=== PATIENT | male | born 1960 | race American Indian/Alaskan Native ===

== ENCOUNTER 2017-10-28 14:22 | Emergency (ER) | payer MEDICAID, OTHER ==
[2017-10-28 14:33] VITALS: RESP 18; O2SAT 99
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
[2017-10-28 15:51] VITALS: BP 120/78; PULSE 78; TEMP 97
== END 2017-10-28 15:00 | disposition left against medical advice (07) ==
LOC: H.ER 14:22
DX: N50.819 Testicular pain, unspecified (principal)

== ENCOUNTER 2018-04-25 16:01 | Emergency (ER) | payer OTHER ==
[2018-04-25 16:29] VITALS: BP 103/58; PULSE 62; RESP 16; TEMP 98.2; O2SAT 98
--- NOTE | 2018-04-25 16:56 | ED PDOC ---
HPI: Skin/Bite Injury Time Seen by Provider: 04/25/18 16:31 Chief Complaint (Nursing): Abnormal Skin Integrity Chief Complaint (Provider): bumps on facial skin History Per: Patient History/Exam Limitations: no limitations Onset/Duration Of Symptoms: Days Current Symptoms Are (Timing): Still Present Additional Complaint(s): 57 yo male presents with 2 bumps on face. PT states it has been going on for 1 month without improvement. Pt states he has not applied ointment or warm compresses. PT states he comes today because he is unable to get his hair/face cut by [facility]. Pt denies pain. PT denies fever/chills Past Medical History Reviewed: Historical Data, Nursing Documentation, Vital Signs Vital Signs: Last Vital Signs Temp 98.2 F 04/25/18 16:26 Pulse 62 04/25/18 16:26 Resp 16 04/25/18 16:26 BP 103/58 L 04/25/18 16:26 Pulse Ox 98 04/25/18 16:26 - Medical History PMH: No Chronic Diseases - Surgical History Surgical History: No Surg Hx - Family History Family History: States: Unknown Family Hx - Living Arrangements Living Arrangements: With Family - Social History Current smoker - smoking cessation education provided: No - Home Medications Home Medications: Ambulatory Orders Medication Instructions Recorded Cyclobenzaprine [Cyclobenzaprine 10 mg PO TID PRN #15 tab 05/26/16 HCl] Ibuprofen [Motrin] 600 mg PO Q6 PRN #15 tab 05/26/16 Cyclobenzaprine [Cyclobenzaprine 10 mg PO TID #20 tab 08/10/16 HCl] Ibuprofen [Motrin] 600 mg PO Q6 #20 tab 08/10/16 oxyCODONE/Acetaminophen [Percocet 1 ea PO Q6 PRN #5 tab 08/10/16 5/325 mg Tab] Cyclobenzaprine [Cyclobenzaprine 10 mg PO Q8 #15 tab 08/11/16 HCl] Naproxen [Naprosyn] 500 mg PO BID #20 tablet 08/11/16 Doxycycline Monohydrate [Mondoxyne 100 mg PO BID #20 capsule 04/25/18 Nl] - Allergies Allergies/Adverse Reactions: Allergies Allergy/AdvReac Type Severity Reaction Status Date / Time No Known Allergies Allergy Verified 04/25/18 16:26 Review of Systems ROS Statement: Except As Marked, All Systems Reviewed And Found Negative Constitutional: Negative for: Fever, Chills Skin: Positive for: Other Physical Exam - Reviewed Nursing Documentation Reviewed: Yes Vital Signs Reviewed: Yes - Physical Exam Appears: Positive for: Well, Non-toxic, No Acute Distress Head Exam: Positive for: ATRAUMATIC, NORMAL INSPECTION, NORMOCEPHALIC Skin: Positive for: Warm. Negative for: Normal Color (flesh, color indurated area on cheeks, non-tender ) Eye Exam: Positive for: Normal appearance ENT: Positive for: Normal ENT Inspection Neck: Positive for: Normal Cardiovascular/Chest: Negative for: Bradycardia, Tachycardia Respiratory: Negative for: Accessory Muscle Use, Respiratory Distress Back: Positive for: Normal Inspection Extremity: Positive for: Normal ROM Neurologic/Psych: Positive for: Alert, Oriented - ECG O2 Sat by Pulse Oximetry: 98 Medical Decision Making Medical Decision Making: Discussed warm compresses. Disposition - Clinical Impression Clinical Impression: Abscess - Patient ED Disposition Is Patient to be Admitted: No Counseled Patient/Family Regarding: Diagnosis, Need For Followup, Rx Given - Disposition Disposition: Routine/Home Disposition Time: 16:54 Condition: GOOD Prescriptions: Doxycycline Monohydrate [Mondoxyne Nl] 100 mg PO BID #20 capsule Instructions: Skin Abscess Forms: [facility] ([place]ian)
== END 2018-04-25 16:59 | disposition home or self-care (01) ==
LOC: H.ER 16:01
DX: L02.01 Cutaneous abscess of face (principal)